=== PATIENT | female | born 1995 | race Native Hawaiian/Other Pacific Islander ===

== ENCOUNTER 2023-08-16 14:51 | Emergency (ER) | payer BC, OTHER ==
[~2023-08-16] VITALS: Ht 157.5 cm; Wt 83.9 kg
[2023-08-16 15:35] VITALS: BP 135/72; TEMP 98.2; O2SAT 98
== END 2023-08-16 15:35 | disposition home or self-care (01) ==
LOC: ER 14:51
DX: S13.4XXA Sprain of ligaments of cervical spine, initial encounter (principal); V43.52XA Car driver injured in collision with other type car in traffic accident, initial encounter; Y93.89 Activity, other specified; Y92.410 Unspecified street and highway as the place of occurrence of the external cause; Y99.8 Other external cause status
CPT/HCPCS: A4606; A4663